=== PATIENT | male | born 1995 | race Caucasian/White ===

== ENCOUNTER 2018-07-22 11:02 | Emergency (ER) | payer MEDICAID ==
[~2018-07-22] VITALS: Ht 177.8 cm; Wt 84.1 kg
[~2018-07-22 11:02] MED LIST: METH4TAB PO
[2018-07-22 11:24] VITALS: BP 134/74
[2018-07-22 11:42] LABS: CLARITY,URINE SLIGHTLY CLOUDY (Clear); COLOR,URINE YELLOW (Yellow); GLUCOSE, URINE NEGATIVE (Neg); KETONES,URINE NEGATIVE (Neg); LEUKOCYTE ESTERASE ,URINE MODERATE (Neg); NITRITES, URINE NEGATIVE (Neg); OCCULT BLOOD,URINE TRACE-LYSED (Neg); PROTEIN,URINE NEGATIVE (Neg); UROBILINOGEN,URINE 0.2 E.U/dL (0.2-1.0)
[2018-07-22 11:52] LABS: UA COLLECTION TYPE VOIDED
[2018-07-22 11:53] LABS: BACTERIA,URINE FEW /HPF (Neg); MUCUS STRANDS NONE SEEN /LPF (Neg); RBC,URINE 0-2 /HPF (0-2); SQUAMOUS EPITHELIAL CELL,UR FEW /LPF (FEW); WBC,URINE 50-100 /HPF (0-4)
[2018-07-22] MEDS ORDERED: CefTRIAXone 1000mg IM Kit (w/lidocaine diluent) IM ONE (12:45)
[2018-07-22] MEDS ORDERED: azithromycin 250mg tablet PO ONE (12:45)
[2018-07-22] MEDS ORDERED: DOXY100C2 PO (12:55)
== END 2018-07-22 12:58 | disposition home or self-care (01) ==
LOC: ER 11:03
DX: N34.2 Other urethritis (principal); Z72.51 High risk heterosexual behavior
CPT/HCPCS: 36415; 81001; 87088; 87491; 87591; 96372; 99283; J0696